=== PATIENT | female | born 1985 | race Two or more races ===

== ENCOUNTER 2025-06-19 06:33 | Inpatient (IN) ==
[2025-06-19] MEDS ORDERED: LR 1,000 ML IV 1,000 ML IV ONE (06:48)
[2025-06-19] MEDS ORDERED: ANCEF VIAL 1 GRAM ONE (06:49)
[2025-06-19] MEDS: ANCEF VIAL 1 GRAM IVP ONE (07:11)
[2025-06-19] MEDS: PITOCIN ONE (07:18)
[2025-06-19] MEDS: PRECEDEX INJ VIAL ONE (07:18)
[2025-06-19] MEDS: XYLOCAINE 2 % (PLAIN) ONE (07:18)
[2025-06-19] MEDS: REGLAN INJ 10 MG VIAL ONE (07:18)
[2025-06-19] MEDS: OFIRMEV IV 1000 MG VIAL 1,000 MG/100 ML VIAL IV ONE (07:18)
[2025-06-19] MEDS: DECADRON INJ ONE (07:18)
[2025-06-19] MEDS: ZOFRAN INJ 4 MG VIAL ONE (07:18)
[2025-06-19] MEDS: BICITRA 30 ML PO ONE (07:21)
[2025-06-19] MEDS: PEPCID 20 MG VIAL ONE (07:21)
[2025-06-19 07:23] LABS: MEAN PLATELET VOLUME 8.7 fL (7.4-11.0); RED CELL DISTRIBUTION WIDTH 16.0 % (11.6-16.5)
[2025-06-19] MEDS: NS 100 ML IV 100 ML ONE (07:27)
[2025-06-19] MEDS: LR 1,000 ML IV 1,000 ML IV ONE (07:27)
[2025-06-19] MEDS: LR IV PRN (07:30)
[2025-06-19 07:34] LABS: COR CA(FOR HYPOALB) 9.8 mg/dL (8.5-10.1); CREATININE 0.45 mg/dL (0.55-1.02); eGFR NON BLACK RACES > 60 (>60)
[2025-06-19] MEDS: ZOFRAN INJ 4 MG VIAL IVP PRN (07:40)
[2025-06-19] MEDS: PEPCID 20 MG VIAL IVP PRN (07:41)
[2025-06-19] MEDS ORDERED: DANTRIUM PRN (07:42)
[2025-06-19] MEDS: REGLAN INJ 10 MG VIAL IVP PRN (07:42)
[2025-06-19] MEDS: ANCEF VIAL 1 GRAM IV PRN (07:49)
[2025-06-19 07:53] LABS: BLOOD/HEMOGLOBIN,URINE NEGATIVE (NEGATIVE); LEUKOCYTE ESTERASE ,URINE NEGATIVE (NEGATIVE); NITRITES,URINE NEGATIVE (NEGATIVE)
[2025-06-19 08:00] LABS: APPEARANCE,URINE CLEAR (CLEAR); SQUAMOUS EPITHELIAL CELL,UR MODERATE /HPF (NEGATIVE)
[2025-06-19] MEDS ORDERED: PRECEDEX INJ VIAL PRN (08:00)
[2025-06-19] MEDS: DECADRON INJ IVP PRN (08:05)
[2025-06-19] MEDS: OFIRMEV IV 1000 MG VIAL 1,000 MG/100 ML VIAL IV PRN (08:10)
[2025-06-19] MEDS ORDERED: PITOCIN IVP PRN (08:24)
[2025-06-19] MEDS: EPHEDRINE SULFATE INJ IVP PRN (08:43)
[2025-06-19] MEDS: EPHEDRINE SULFATE INJ ONE (08:44)
[2025-06-19] MEDS: TORADOL 30 MG VIAL ONE (08:45)
[2025-06-19] MEDS: TORADOL 30 MG VIAL IVP PRN (08:49)
[2025-06-19] MEDS ORDERED: BENADRYL INJ 50 MG VIAL IVP PRN ×2 (09:07→10:05)
[2025-06-19] MEDS ORDERED: DILAUDID INJ IVP PRN (09:07)
[2025-06-19] MEDS ORDERED: ZOFRAN INJ 4 MG VIAL IVP PRN ×2 (09:07→10:05)
[2025-06-19] MEDS: OXYTOCIN 20 UNIT/1,000 ML-NS 20 UNIT/1,000 ML PLAST..BAG IV SCH (09:15)
[2025-06-19] MEDS ORDERED: REGLAN INJ 10 MG VIAL IVP PRN (10:05)
[2025-06-19] MEDS ORDERED: NARCAN INJ IVP PRN ×2 (10:05)
[2025-06-19] MEDS: ADACEL or BOOSTRIX TDaP VACCINE IM ONE (11:05)
[2025-06-19] MEDS: PERCOCET TAB 5/325 MG PO PRN (19:34)
[2025-06-19] MEDS: MOTRIN TAB 800 MG PO PRN (21:43)
[2025-06-20] MEDS: MYLICON TAB 80 MG CHEW PO PRN (01:42)
[2025-06-20] MEDS: LR 1,000 ML IV 1,000 ML IV ONE (02:26)
[2025-06-20] MEDS: TORADOL 30 MG VIAL IVP PRN (06:24)
[2025-06-20] MEDS: PRENATAL PLUS PO SCH (09:01)
[2025-06-20] MEDS ORDERED: PERCOCET TAB 5/325 MG PO PRN (09:10)
[2025-06-20] MEDS: DILAUDID INJ IVP PRN (10:56)
[2025-06-21 00:53] VITALS: O2SAT 97
[2025-06-21] MEDS ORDERED: CONSULT PHARMACY - POTASSIUM & MAGNESIUM XX SCH (08:00)
[2025-06-21 08:33] VITALS: BP 108/69; PULSE 67; RESP 16; TEMP 98.2
[2025-06-21] MEDS ORDERED: COLACE CAP 100 MG PO STA (09:27)
[2025-06-21] MEDS: DULCOLAX SUPPOSITORY 10 MG RECTAL ONE (11:14)
== END 2025-06-21 11:55 | disposition home or self-care (01) | DRG 785 ==
LOC: LD 06:33 → MED/SURG 10:10
PROVIDERS: ADMIT Obstetrics & Gynecology Obstetrics; ATTEND Obstetrics & Gynecology Obstetrics
DX: N85.8 Other specified noninflammatory disorders of uterus; O34.211 Maternal care for low transverse scar from previous cesarean delivery; Z37.0 Single live birth; Z3A.39 39 weeks gestation of pregnancy; Z30.2 Encounter for sterilization